=== PATIENT | female | born 1995 | race African-American/Black ===

== ENCOUNTER 2017-05-21 16:06 | Emergency (ER) | payer MEDICAID ==
[~2017-05-21] VITALS: Ht 160 cm; Wt 60.0 kg
[2017-05-21 16:19] VITALS: BP 119/67
== END 2017-05-21 17:31 | disposition left against medical advice (07) ==
LOC: ER 16:38
DX: Z53.21 Procedure and treatment not carried out due to patient leaving prior to being seen by health care provider (principal)

== ENCOUNTER 2017-09-02 08:48 | Emergency (ER) | payer MEDICAID ==
[~2017-09-02] VITALS: Ht 172.7 cm; Wt 53.0 kg
[2017-09-02 10:06] VITALS: BP 113/73
== END 2017-09-02 12:21 | disposition home or self-care (01) ==
LOC: ER 08:48
DX: J30.9 Allergic rhinitis, unspecified (principal); R09.82 Postnasal drip
CPT/HCPCS: 99283